=== PATIENT | male | born 1960 | race Caucasian/White ===

== ENCOUNTER → 2018-09-28 | Outpatient (CLI) | payer BC | LOC: SUN.DIA 09:20 | DX: E11.9 Type 2 diabetes mellitus without complications (principal); E78.5 Hyperlipidemia, unspecified; I10 Essential (primary) hypertension | CPT/HCPCS: G0108 ==

== ENCOUNTER → 2018-10-13 | Outpatient (CLI) | payer BC ==
[~2018-10-13] MED LIST: NORCO2.5 PO
== END ==
LOC: COL.RAD 08:30
DX: E11.69 Type 2 diabetes mellitus with other specified complication (principal); N28.89 Other specified disorders of kidney and ureter; R31.9 Hematuria, unspecified; R91.1 Solitary pulmonary nodule
CPT/HCPCS: Q9967

== ENCOUNTER → 2018-10-23 | Outpatient (CLI) | payer BC | LOC: COL.RAD 10:32 | DX: R91.1 Solitary pulmonary nodule (principal) | CPT/HCPCS: Q9967 ==

== ENCOUNTER 2019-10-10 01:10 | Emergency (ER) | payer BC ==
[~2019-10-10] VITALS: Ht 195.6 cm; Wt 95.5 kg
[2019-10-10 01:35] VITALS: BP 143/85; TEMP 98.3
[2019-10-10 03:57] VITALS: PULSE 82
== END 2019-10-10 03:57 | disposition home or self-care (01) ==
LOC: COL.ER 01:10
DX: S01.111A Laceration without foreign body of right eyelid and periocular area, initial encounter (principal); E11.9 Type 2 diabetes mellitus without complications; Z79.84 Long term (current) use of oral hypoglycemic drugs; W01.198A Fall on same level from slipping, tripping and stumbling with subsequent striking against other object, initial encounter; Y92.009 Unspecified place in unspecified non-institutional (private) residence as the place of occurrence of the external cause

== ENCOUNTER → 2021-12-21 | Outpatient (CLI) | payer BC | LOC: COL.RAD 11-30 14:30 | DX: J84.10 Pulmonary fibrosis, unspecified (principal); R91.1 Solitary pulmonary nodule; I25.10 Atherosclerotic heart disease of native coronary artery without angina pectoris | CPT/HCPCS: Q9967 ==